=== PATIENT | female | born 1990 ===

== ENCOUNTER 2020-11-04 06:00 | Inpatient (IN) | payer BC ==
[2020-11-04] MEDS ORDERED: LIDOCAINE 0.5% (PF) 5 MG/ML (50 ML SDV) SQ PRN (06:17)
[2020-11-04] MEDS ORDERED: CARBOPROST TROMETHAMINE 250 MCG/ML 1 ML AMP IM PRN (06:17)
[2020-11-04] MEDS ORDERED: TERBUTALINE 1 MG/ML VIAL SQ PRN (06:17)
[2020-11-04] MEDS ORDERED: METHYLERGONOVINE 0.2 MG/ML 1 ML AMP IM PRN (06:17)
[2020-11-04] MEDS ORDERED: OXYTOCIN 10 UNIT/ML 1 ML VIAL IM PRN (06:17)
[2020-11-04] MEDS: LACTATED RINGERS 1,000 ML IV SCH ×2 (06:42→07:58)
[2020-11-04] MEDS ORDERED: OXYTOCIN 30 UNITS/500 ML NS 30 UNIT in SALINE 1 500ML.BAG IV SCH (06:45)
[2020-11-04 07:10] LABS: Basophils % (A) 0 %; Eosinophils # (A) 0.1 k/uL (0-0.7); Eosinophils % (A) 1 %; HCT 37.6 % (34.0-46.0); HGB 13.2 gm/dL (11.4-16.0); Lymphocytes % (A) 21 %; MCH 32.6 pg (25.0-35.0); MCHC 35.1 g/dL (31.0-37.0); MCV 92.7 fL (80.0-100.0); Mean Platelet Volume 9.1; Monocytes # (A) 0.5 k/uL (0-1.0); Monocytes % (A) 5 %; Neutrophils # (A) 6.9 k/uL (1.3-7.7); Neutrophils % (A) 72 %; Platelet Count 159 k/uL (150-450); RBC 4.06 m/uL (3.80-5.40); RDW 13.3 % (11.5-15.5); WBC 9.7 k/uL (3.8-10.6)
[2020-11-04] MEDS ORDERED: SODIUM CHLORIDE 0.9% 100 ML BAG ONE (07:27)
[2020-11-04] MEDS ORDERED: fentaNYL (PF) 50 MCG/ML 5 ML AMP ONE (07:27)
[2020-11-04] MEDS ORDERED: ROPIVACAINE 5MG/ML 20ML VIAL ONE (07:27)
--- NOTE | 2020-11-04 07:56 | P.HPOB ---
History of Present Illness H&P Date: 11/04/20 Chief Complaint: Here for elective induction of labor with favorable cervix at 39 weeks This is a 30-year-old female 4 para 3003 EDC 11/11/2020 at 39 weeks gestation. Patient presents today for induction with favorable cervix. Fetus is been active throughout the . She denies vaginal bleeding or fluid leakage. Past medical history is significant for anal fissures, history of preeclampsia. Past surgical history knee surgery on the right years ago. Current medications vitamins daily. ALLERGIES none known. Family history significant for hypertension, diabetes, breast cancer. Obstetric history significant for normal spontaneous vaginal deliveries 3, all unremarkable. Social history patient is , her 's name is Jim. She is never been a tobacco smoker and denies alcohol or drug use. history significant for blood type O-, rubella status immune. VDRL testing, urine culture, hepatitis B surface antigen, HIV testing, gonorrhea and chlamydia cultures, group B strep cultures all negative. One-hour Glucola 129. On exam patient is 5 foot 6 inches, 199 pounds, blood pressure 118/68. Vital signs are stable and she is afebrile. General physical exam is within normal limits. Extremities reveal no edema. heart rate is consistent with reactive NST. Cervix is 3 cm dilated, 60-70% effaced, anterior, soft, -2 station, vertex presentation. Artificial amniorrhexis reveals clear fluid. Anesthesia team is here and has placed patient's epidural per her request. Impression: 39 week intrauterine , all signs reassuring, here for elective induction of labor. Plan: Oxytocin per hospital protocol. Close maternal and surveillance. Anticipate normal spontaneous vaginal delivery. Review of Systems Constitutional: Reports as per HPI Past Medical History Past Medical History: Asthma Additional Past Medical History / Comment(s): sports induced History of Any Multi-Drug Resistant Organisms: None Reported Past Surgical History: Orthopedic Surgery Additional Past Surgical History / Comment(s): left knee/patella Past Anesthesia/Blood Transfusion Reactions: No Reported Reaction Past Psychological History: No Psychological Hx Reported Smoking Status: Never smoker Past Alcohol Use History: None Reported Past Drug Use History: None Reported - Past Family History Mother Family Medical History: Hypertension Father Family Medical History: Diabetes Mellitus, Hypertension, Renal Disease Medications and Allergies Home Medications Medication Instructions Recorded Confirmed Type Pnv,Calcium 72/Iron/Folic Acid 1 each PO DAILY 11/04/20 11/04/20 History [ Plus Tablet] Allergies Allergy/AdvReac Type Severity Reaction Status Date / Time No Known Allergies Allergy Verified 11/04/20 06:16 Exam Vital Signs Temp Pulse Resp BP Pulse Ox 11/04/20 06:28 98.0 F 79 16 118/68 100 Intake and Output 11/03/20 11/04/20 11/04/20 22:59 06:59 14:59 Other: Weight 90.265 kg See dictation under HPI please Results Result Diagrams: 11/04/20 06:41 Assessment and Plan Assessment: 39 week intrauterine , favorable multiparous cervix, here for elective induction of labor, all signs reassuring. Plan: Oxytocin per hospital protocol. Close maternal and surveillance. Anticipate normal spontaneous vaginal delivery. Time with Patient: Less than 30
[2020-11-04] MEDS ORDERED: HYDROCORTISONE 2.5% RECTAL CREAM 30 GM TUBE RECTAL PRN (13:26)
[2020-11-04] MEDS ORDERED: SIMETHICONE 80 MG CHEWABLE PO PRN (13:26)
[2020-11-04] MEDS ORDERED: diphenhydrAMINE 25 MG CAP PO PRN (13:26)
[2020-11-04] MEDS ORDERED: LANOLIN CREAM 5 GM TUBE TOPICAL PRN (13:26)
[2020-11-04] MEDS ORDERED: diphenhydrAMINE ELIXIR 25 MG/10 ML CUP PO PRN (13:26)
[2020-11-04] MEDS ORDERED: diphenhydrAMINE 50 MG CAP PO PRN (13:26)
[2020-11-04] MEDS ORDERED: ZOLPIDEM 5 MG TAB PO PRN (13:26)
[2020-11-04] MEDS ORDERED: BENZOCAINE/MENTHOL SPRAY 1 GM/SPRAY AEROSOL TOPICAL PRN (13:26)
[2020-11-04] MEDS ORDERED: diphenhydrAMINE 50 MG/ML 1 ML VIAL IVP PRN ×2 (13:26)
--- NOTE | 2020-11-04 13:26 | P.PROBDLV ---
Vaginal Delivery Note - . Vaginal Delivery Note: This is a 30-year-old female 4 para 3003 EDC 11/11/2020 at 39 weeks gestation. Patient presented this morning for induction with favorable multiparous cervix and a history of fast labor. remarkable for blood type O-, rubella status immune. Group B strep cultures negative. Please see dictated history and physical for details. Artificial amniorrhexis revealed clear fluid. Epidural was placed per her request. Oxytocin was started and titrated per hospital protocol. heart tones were reassuring throughout the first and second stages of labor. She was judged to be completely dilated at 1306 hrs. and began the second stage of labor at that time. Perineal body was prepped and draped in usual sterile fashion. With excellent maternal expulsive efforts head delivered occiput anterior and restituted accordingly. The left or anterior shoulder was delivered easily from underneath the pubic symphysis at which time the oropharynx, nasopharynx, and external nares were all bulb suctioned. Patient was officially delivered of a liveborn male infant at 1309 hrs. Umbilical cord was doubly clamped and ligated, he was handed to waiting nurses for evaluation where scores of 9 and 9 at one and 5 minutes respectively are given. Infant weighed 8 lbs. 15 oz. or 4060 g. Void and stool were noted. Placenta delivered spontaneously, it was inspected and noted to be intact with trivascular cord at 1313 hrs. Uterus is then massaged. Careful inspection of the cervix, vagina, perineum, periurethral, and perirectal areas revealed a very small first-degree midline laceration repaired in the usual fashion using a single [id number] suture of rapide. All sponge needle and enhancement counts are correct. Patient is requesting circumcision for her infant son. Estimated blood loss 150 mL's.
[2020-11-04] MEDS: IBUPROFEN 600 MG TAB PO SCH ×2 (15:19→21:34)
[2020-11-04] MEDS: ACETAMINOPHEN TAB 325 MG TAB PO PRN (18:08)
[2020-11-04] MEDS: SENNOSIDES-DOCUSATE SODIUM 1 EACH TAB PO SCH (19:55)
[2020-11-04] MEDS ORDERED: Rhogam IMMUNE GLOBULIN 1,500 UNIT/1 ML IM ONE (21:25)
[2020-11-05] MEDS: ACETAMINOPHEN TAB 325 MG TAB PO PRN ×3 (01:05→13:23)
[2020-11-05] MEDS: IBUPROFEN 600 MG TAB PO SCH ×3 (02:54→09:45)
--- NOTE | 2020-11-05 07:43 | P.DS ---
Providers Date of admission: 11/04/20 06:05 Expected date of discharge: 11/05/20 Attending physician: Brianda Duvall Primary care physician: Stated None Hospital Course: This is a 30-year-old female 4 para 3003 EDC 11/11/2020 at 39 weeks gestation. Patient presented for induction with favorable multiparous cervix yesterday. remarkable for blood type O negative, group B strep cultures negative. Please see dictated history and physical for details. She went on to deliver spontaneously and rather quickly, a liveborn male with scores of 9 and 9 at one and 5 minutes respectively. The was a small scrape perineal laceration easily repaired. Infant weighed 4060 g or 8 lbs. 15 oz. Estimated blood loss 150 mL's. Please see dictated delivery note for details. Cord blood was sent to the lab for known Rh- status. This morning the patient and her are both doing well. Patient is voiding, ambulating, passing flatus, breast-feeding without difficulty. Vital signs are stable and she is afebrile. Lochia rubra is minimal. Breasts are not engorged. Fundus is firm and in the midline, symmetric, 18 week size. [place] circumcision has been performed. Patient is judged to be in very good condition for discharge home. She will follow-up with me in the office in 6 weeks. I have reminded her no intercourse, tampons or douching. She will use [id number] Advil or Aleve, or Motrin as needed for pain. She will call with any fevers shakes or chills, foul smelling or copious lochia, with the passage of large blood clots, with any pain not alleviated by [id number] medications, or indeed with any concerns. 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 Assessment: Doing well day #1 Patient Condition at Discharge: Good Plan - Discharge Summary Discharge Rx Participant: No New Discharge Prescriptions: No Action Pnv,Calcium 72/Iron/Folic Acid [ Plus Tablet] 1 each PO DAILY Discharge Medication List Pnv,Calcium 72/Iron/Folic Acid [ Plus Tablet] 1 each PO DAILY 11/04/20 [History] Follow up Appointment(s)/Referral(s): Brianda Duvall MD [STAFF PHYSICIAN] - 6 Weeks Discharge Disposition: HOME SELF-CARE
[2020-11-05] MEDS: SENNOSIDES-DOCUSATE SODIUM 1 EACH TAB PO SCH (09:53)
[2020-11-05 12:23] VITALS: BP 107/58; PULSE 72; RESP 14; TEMP 98.4
== END 2020-11-05 14:15 | disposition home or self-care (01) | DRG 807 ==
LOC: 4FBP 06:05
PROVIDERS: ADMIT Obstetrics & Gynecology; ATTEND Obstetrics & Gynecology
PROC: 10E0XZZ Delivery of Products of Conception, External Approach (ICD-10-PCS; principal; 2020-11-04)
PROC: 0HQ9XZZ Repair Perineum Skin, External Approach (ICD-10-PCS; 2020-11-04)
DX: O70.0 First degree perineal laceration during delivery (principal); Z37.0 Single live birth; O99.52 Diseases of the respiratory system complicating childbirth; J45.909 Unspecified asthma, uncomplicated; Z3A.39 39 weeks gestation of pregnancy; Z80.3 Family history of malignant neoplasm of breast; Z82.49 Family history of ischemic heart disease and other diseases of the circulatory system; Z83.3 Family history of diabetes mellitus
CPT/HCPCS: 85025; 85461; 86850; 86900; 86901

== ENCOUNTER → 2020-11-11 | Outpatient (CLI) | payer BC ==
--- NOTE | 2020-11-11 15:45 | US ---
EXAMINATION TYPE: US venous doppler duplex LE RT DATE OF EXAM: 11/11/2020 3:32 PM COMPARISON: NONE CLINICAL HISTORY: M79.661 pain in right lower limb. Cramping in leg delivered baby one week ago. SIDE PERFORMED: Right TECHNIQUE: The lower extremity deep venous system is examined utilizing real time linear array sonog mark with graded compression, doppler sonography and color-flow sonography. VESSELS IMAGED: Common Femoral Vein Deep Femoral Vein Greater Saphenous Vein * Femoral Vein Popliteal Vein Proximal Calf Veins (* superficial vessels) Right Leg: Negative for DVT IMPRESSION: No sonographic evidence for deep vein thrombosis of the right lower extremity.
== END | disposition home or self-care (01) ==
LOC: RADUSWWP 15:10
PROVIDERS: ATTEND Obstetrics & Gynecology
DX: M79.661 Pain in right lower leg (principal)